=== PATIENT | female | born 2000 | race Caucasian/White ===

== ENCOUNTER 2019-05-23 09:30 | Outpatient (RCR) | payer BC, SELFPAY ==
--- NOTE | 2019-04-25 10:22 | HP.PTEVAL ---
Patient's Visit Information SEN MELENDEZ is a 19 year old F referred to Physical Therapy by [facility]AL with a diagnosis of L ACL repair 03/09/20. Date of Evaluation: 04/25/19 Physical Therapist: Jose Orozco, PT, ATC - Visit Plan Frequency: 2-3x /Week Duration: 2-4 Months Plan: L LE stretching and strengthening, core stab ex's, balance and proprio, bike, and HEP - Subjective Findings: DOS: 03/09/20. Pt reports she had an ACL and medial meniscus repair at that time. Pt reports she had PT for a couple weeks following her surgery, but is just now returning to PT after a few weeks off secondary to being busy with school. Pt is a college soccer and track athlete. Pt reports she has torn her R ACL in the past. Pt reports she is still in pain at this time. Pt reports she just flew home for the weekend for her ACL brace. Pt reports her L knee and most of her gastroc region are still numb at this time. Occasional sleep difficulty secondary to pain. 0/10 pain at rest, 5/10 pain at worst - Pain L knee Pain Intensity (Out of 10): 0 Pain Intensity Range: 5 - Objective Neuro: B LE sensation is WNL to light touch. B achilles reflex= 2/3. Girth at joint line: B knees 30 cm. ROM: R knee 0-150 degrees. L knee 0-130 degrees. MMT: R LE grossly 5/5 throughout. L LE knee ext 4-/5, flexion 4+/5. All other B LE measurements 5/5 throughout - Goals Goal 1:: Decrease L knee pain x 50% to aid with ambulation Goal Time Frame: 6-8 Weeks Goal 2:: Increase L LE strength x 1 grade to aid with RTS Goal Time Frame: 6-8 Weeks Goal 3:: Increase L knee flex x 10-15 degrees to aid with RTS Goal Time Frame: 6-8 Weeks Goal 4:: I with HEP Goal Time Frame: 6-8 Weeks - Rehabilitation Potential Physical Therapy Diagnosis: L knee pain, weakness, and limited ROM secondary to R ACL repair Rehabilitation Potential: Good - Anticipated Interventions Patient/Client Instruction: Educate patient on: Condition, Plan of Care For the Purpose of:: To improve self management Therapeutic Exercise to Include: Strength training, Endurance training, Balance training, Flexibilty training, Passive ROM, Active ROM, Dynamic Lumbar Stabilization For the Purpose of:: To decrease pain, To increase ROM, To improve muscle performance and motor function Cryotherapy (ice pack, ice massage): Yes For the Purpose of:: To decrease pain Thank you for the opportunity to evaluate your patient. For Medicare and Medicare HMO plans, please review the plan of care and approve it. It will need to be FAXED BACK to us at [phone] for Medicare purposes. For Medicare only, by signing this I certify the plan of care. Please let me know if there are questions or concerns regarding this plan of care. Physician Signature: Date:
--- NOTE | 2019-10-26 11:48 | HP.PT.NRP ---
SEN MELENDEZ was seen in my office for initial evaluation on 04/25/19. The following Plan of Care was established for this patient: Initial Frequency: 2-3x /Week Initial Duration: 2-4 Months Patient/Client Instruction: Educate patient on: Condition, Plan of Care For the Purpose of:: To improve self management Therapeutic Exercise to Include: Strength training, Endurance training, Balance training, Flexibilty training, Passive ROM, Active ROM, Dynamic Lumbar Stabilization For the Purpose of:: To decrease pain, To increase ROM, To improve muscle performance and motor function Cryotherapy (ice pack, ice massage): Yes For the Purpose of:: To decrease pain This patient was last seen in our office . Pertinent comments regarding their Physical therapy will appear below: Pt was treated for 10 PT visits for L knee pain through the date of 06/12/19. Pt has not returned through todays date and is discontinued at this time. At this point I will be discontinuing this patient from physical therapy. I would be happy to see this patient again in the future if found appropriate by the physician. Thank you! Jose Orozco, PT, ATC
== END 2019-05-23 19:00 | disposition home or self-care (01) ==
LOC: PT 09:30
DX: Z98.890 Other specified postprocedural states (principal)
CPT/HCPCS: 97110; 97161

== ENCOUNTER 2020-01-31 12:00 | Outpatient (RCR) | payer BC, SELFPAY ==
--- NOTE | 2019-12-10 10:06 | HP.PTEVAL_ITS ---
Patient's Visit Information SEN MELENDEZ is a 19 year old F referred to Physical Therapy by [facility] with a diagnosis of L ACL reconstruction with quad tendon, medial meniscus ramp lesion repair. Date of Evaluation: 12/05/19 Physical Therapist: Jose Elias Zamora DPT - Visit Plan Frequency: 1x/Week Duration: 8 weeks Plan: Start with massage/ice to medial knee, hip ER/IR/core strengthening. SL squat and knee stability exercises. Progress per protocol. - Subjective Pt. is here today for her initial evaluation with diagnosis of L ACL reconstruction with quad tendon, medial meniscus ramp lesion repair and MCL inbrication using internal brace. DOS: 03/09/19. 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. Pt. reports overall she is doing well. She has been running for a few months now. She is running 3-5 miles per day and is doing straight line sprinting as well. She has been kicking or completing any ball skills at this point in time. Her biggest complaint is at the medial joint line of her knee, this is the worst part. I really feel it when I am running. Pt. is hopeful to get back to [employer] soccer and running track without limitations. - Pain L medial knee Pain Intensity (Out of 10): 0 Pain Intensity Range: 0, 4 Comment: Worst at medial joint line, slight superior. - Objective POSTURE: Pt. has good posture in stance. Good knee positioning noted. Pt. has no major valgus/varus motions. PALPATION: pt. has good healing incisions. Pt. has medial knee pain with palpation, along MCL but superior aspect. Pt. has slight quad tendon soreness as well. NEURO: Pt. has normal sensation and DTR of BLEs. ROM: L knee 0-0-138deg tightness noted at end range flexion, but no pain. Pt. has good HS and hip flexor length as well. MMT: LLE- knee- ext: 34.5lbs, flexion 38.1lbs; hip- flexion: 37.4lbs, ext: 35.9lbs; abd 41.1lbs. RLE: knee: ext 37.4lbs, flexion 37.9lbs; hip- flexion 34.3lbs; ext 34.9lbs; abd 37.1lbs. GAIT: Pt. has normal gait pattern without increase in symptoms. Running: Pt. has exaggerated heel strike with increased TKE during initial contact with light to moderate jogging. Normal pattern otherwise. She does have increased pain with initial contact as well, but minor. Sprint: Pt. has improved pattern no pain. STAIRS: Pt. has normal pattern on stairs, mild soreness - Goals Goal 1:: LTG: Pt. to be I with HEP. Goal Time Frame: 6-8 Weeks Goal 2:: LTG: Pt. to run 3-5 miles with 0-1/10 pain Goal Time Frame: 6-8 Weeks Goal 3:: LTG: Pt. to have increased LLE strength equal to RLE. Goal Time Frame: 6-8 Weeks Goal 4:: Pt. to have good single leg squat mechanics without increase in symptoms. Goal Time Frame: 6-8 Weeks Goal 5:: LTG: pt. to have no pain with all agility activities. Goal Time Frame: 6-8 Weeks - Rehabilitation Potential Physical Therapy Diagnosis: Pt. has signs and symptoms consistent with L ACL reconstruction with quad tendon, medial meniscus ramp lesion repair and MCL imbrication using internal bracing. Pt. is ~9 months out of surgery and is doing well. Pt. is still presenting with some weakness from L to R as well as some discomfort with running and valgus stress to her L knee. pt would benefit from P T to work on stability of her L knee when in dynamic positons. Rehabilitation Potential: Excellent - Anticipated Interventions Patient/Client Instruction: Educate patient on: Condition, Plan of Care, Risk Factors, Benefits of Fitness Program For the Purpose of:: To facilitate caregiver knowledge, To improve self management, To prevent re-injury, To improve ability to perform tasks related to life management, To improve tolerance to ADL's Therapeutic Exercise to Include: Strength training, Power training, Balance training, Body mechanics, Postural training, Flexibilty training, Gait and locomotor training For the Purpose of:: To decrease pain, To decrease swelling/inflammation, To increase ROM, To improve nutrient delivery to tissue, To increase oxygenation perfusion, To improve muscle performance and motor function, To improve health of tissue, To decrease soft tissue restriction, To increase flexibility/ROM, To improve endurance, To improve balance Manual Therapy Techniques to Include: Massage, Scar massage For the Purpose of:: To decrease pain, To decrease swelling/inflammation Cryotherapy (ice pack, ice massage): Yes For the Purpose of:: To decrease pain, To decrease swelling/inflammation Thank you for the opportunity to evaluate your patient. For Medicare and Medicare HMO plans, please review the plan of care and approve it. It will need to be FAXED BACK to us at [phone] for Medicare purposes. For Medicare only, by signing this I certify the plan of care. Please let me know if there are questions or concerns regarding this plan of care. Physician Signature: Date:
== END 2020-01-31 19:00 | disposition home or self-care (01) ==
LOC: PT 12:00
DX: Z98.890 Other specified postprocedural states (principal)
CPT/HCPCS: 97110; 97161